=== PATIENT | female | born 1940 | race Caucasian/White ===

== ENCOUNTER → 2020-03-16 | Outpatient (REF) | payer MEDICARE, OTHER | LOC: M LAB REF 14:27 | PROVIDERS: ATTEND Dermatology | DX: C44.629 Squamous cell carcinoma of skin of left upper limb, including shoulder (principal) ==

== ENCOUNTER → 2020-03-20 | Outpatient (REF) | payer MEDICARE, OTHER | LOC: M LAB REF 12:59 | PROVIDERS: ATTEND Dermatology | DX: L90.5 Scar conditions and fibrosis of skin (principal) ==

== ENCOUNTER → 2020-04-03 | Outpatient (REF) | payer MEDICARE, OTHER | LOC: M LAB REF 18:02 | PROVIDERS: ATTEND Dermatology | DX: Z51.89 Encounter for other specified aftercare (principal) ==

== ENCOUNTER → 2020-08-14 | Outpatient (REF) | payer MEDICARE, OTHER | LOC: M LAB REF 19:09 | PROVIDERS: ATTEND Dermatology | DX: C44.219 Basal cell carcinoma of skin of left ear and external auricular canal (principal) | CPT/HCPCS: 11102; 17000; 17003; 17110; 88305; G0463 ==

== ENCOUNTER → 2021-03-15 | Outpatient (REF) | payer MEDICARE, OTHER | LOC: M LAB REF 17:21 | PROVIDERS: ATTEND Dermatology | DX: C44.629 Squamous cell carcinoma of skin of left upper limb, including shoulder (principal) | CPT/HCPCS: 11102; 88305; G0463 ==

== ENCOUNTER → 2021-05-01 | Outpatient (REF) | payer MEDICARE, OTHER ==
[~2021-05-01] MED LIST: ASMA220A2; ELIQ5TAB; FURO20TA2; GABA-1171; ISOS1TAB35; LEVO50TA5; METO1TAB7; POTA10CA32; ROSU5TAB5
== END ==
LOC: M LAB REF 12:19
PROVIDERS: ATTEND Dermatology
DX: L57.0 Actinic keratosis (principal); L57.8 Other skin changes due to chronic exposure to nonionizing radiation

== ENCOUNTER → 2021-05-14 | Outpatient (CLI) | payer MEDICARE, OTHER ==
--- NOTE | 2021-05-14 13:04 | RADONC.CN ---
Radiation Oncology Hx/Consult Radiation Oncology Consult Date of Service: May 14, 2021 Pt Identifier Bren Pham is a 80 year old female with a history of a left shoulder recurrent cutaneous SCC, [id number] stage III, deeply invasive. She underwent re- excision with Dr. Queen on 05/02/21 with negative margins and skin graft. She is seen today for adjuvant RT. Diagnosis/Treatment History Oncologic History History of BCC, [place], SCC 03/20/20 Excision of 5.0 x 4.0 cm left shoulder SCC Left shoulder, lesion, excision: Squamous cell carcinoma, invading dermis and focally the subcutaneous fat, as small nests and cords. The carcinoma is noted in the 12-1 area of the specimen on the inked dermal margin. All other skin(epidermal and dermal) and deep margins/subcutaneous fat appear free. 03/18/21 Shave biopsy for a recurrent left shoulder SCC 05/02/21 Re-excision of the lesion negative margins mesh graft Interval History No pain in shoulder, reports graft is healing well. Lives in [place]. No other lesions of concern today. Past Medical History: HTN UTIs CVA Past Surgical History: TAVR Social History: Never smoker Rarely drinks Review of Systems Constitutional: Reports: Normal appetite; Denies: Fatigue, Weight Loss Hematologic: Denies: Enlarged Lymph Nodes Musculoskeletal: Denies: Neck pain, Shoulder pain Psych: Reports: Mood Normal Vital Signs T 97.3 P 74 RR 18 BP 132/75 O2 94% Pain 0 Fatigue 0 General Exam: Alert, Cooperative, No Acute Distress Eye Exam: PERRLA, EOMI ENT EXAM: Atraumatic Neck Exam: Supple; Negative: Lymphadenopathy Abdomen Exam: Soft Extremity Exam: Negative: Edema Skin Exam: Lesion (There is a healing 8.0 x 4.5 cm ovoid graft on the left superior posterior shoulder. No axillary or cervical adenopathy. ) Neuro Exam: Normal Gait, Normal Speech, Cranial Nerves 3-12 NL Psych Exam: Mental status NL Diagnostic and Laboratory Diagnostic Review Radiologic images, relevant labs and pathology reports were personally reviewed and discussed with Ms. Pham. Assessment and Plan Impression Ms. Pham is a 80 year old female with a history of left shoulder recurrent cutaneous SCC, [id number] stage III, deeply invasive. She underwent re-excision with Dr. Queen on 05/02/21 with negative margins and skin graft. She is seen today for adjuvant RT. Stage Left shoulder cutaneous SCC [id number] stage III Performance Status ECOG 0 Plan We had an extensive discussion with Ms. Pham regarding the diagnosis at hand and available therapeutic options. She had a recurrent lesion on the shoulder which was re-excised to negative margins on 05/02/21. The recurrence is indication for adjuvant RT to reduce the risk of further recurrence. For this I recommend 55 Gy in 20 fractions with 6MeV electrons and bolus. This dose/fractionation scheme will maintain the integrity of the graft. We reviewed the side effects of treatment including skin reaction (redness, dry and or moist peeling, pain), fibrosis and late pigmentation changes. We discussed the logistics of receiving radiation therapy in detail including the need for a 1-time planning session. This can occur in 1-2 weeks to facilitate further healing of the graft. After discussing the risks, benefits and alternatives to radiation therapy, Ms. Pham was amenable to pursuing radiotherapy. All questions were answered to the patient's satisfaction. We instructed the patient that if there were any questions,concerns or changes in clinical status in the interim to contact us. Recommendations Adjuvant RT 55 Gy in 20 fractions with electrons/bolus Simulation in the next 1-2 weeks to facilitate healing of the graft Billing Statement Total time of [35] minutes was spent preparing for the visit [2], obtaining HPI [6], examining the patient [4], reviewing diagnostic tests [2], discussing management options [14], coordinating care [2], and writing this note [7]. EULALIA MAHER MD May 14, 2021 13:03
== END ==
LOC: M ONCR 11:01
PROVIDERS: ATTEND General Practice
DX: C44.629 Squamous cell carcinoma of skin of left upper limb, including shoulder (principal)

== ENCOUNTER → 2021-06-17 | Outpatient (CLI) | payer MEDICARE, OTHER | LOC: M PLARAD 11:02 | PROVIDERS: ATTEND Dermatology | DX: C44.92 Squamous cell carcinoma of skin, unspecified (principal); I65.23 Occlusion and stenosis of bilateral carotid arteries; J43.8 Other emphysema; I51.7 Cardiomegaly; I70.0 Atherosclerosis of aorta; I25.10 Atherosclerotic heart disease of native coronary artery without angina pectoris; Z95.2 Presence of prosthetic heart valve; K44.9 Diaphragmatic hernia without obstruction or gangrene; K80.20 Calculus of gallbladder without cholecystitis without obstruction; K57.90 Diverticulosis of intestine, part unspecified, without perforation or abscess without bleeding; R59.0 Localized enlarged lymph nodes | CPT/HCPCS: 78816; A9552 ==

== ENCOUNTER → 2021-06-24 | Outpatient (RCR) | payer MEDICARE, OTHER | LOC: M ONCR 05-28 10:47 | PROVIDERS: ATTEND General Practice | DX: C44.629 Squamous cell carcinoma of skin of left upper limb, including shoulder (principal) ==

== ENCOUNTER → 2021-07-02 | Outpatient (CLI) | payer MEDICARE, OTHER ==
[2021-07-02 11:16] LABS: BASO # 0.1 10^3/uL (0.0-0.2); BASO % 1.2 % (0.0-1.0); EOS # 0.2 10^3/uL (0.0-0.5); EOS % 2.8 % (0.0-3.0); HEMATOCRIT 41.3 % (36.0-47.0); HEMOGLOBIN 13.2 g/dl (12.0-15.5); LYMPH # 1.5 10^3/uL (1.5-5.0); LYMPH % 22.5 % (24.0-44.0); MEAN CORPUSCULAR VOLUME 96.9 fl (80.0-96.0); MONO # 0.7 10^3/uL (0.0-0.8); MONO % 10.8 % (2.0-8.0); NEUTROPHILS # 4.2 10^3/uL (1.5-8.5); NEUTROPHILS % 62.4 % (36.0-66.0); PLATELET COUNT, AUTOMATED 186 10^3/uL (150-450); RED BLOOD COUNT 4.26 10^6/uL (4.00-5.40); WHITE BLOOD COUNT 6.8 10^3/uL (4.0-10.0)
[2021-07-02 11:27] LABS: INR 1.34
[2021-07-02 11:42] LABS: ALBUMIN 3.6 GM/DL (3.2-5.2); BILIRUBIN,TOTAL 0.3 MG/DL (0.2-1.0); CALCIUM LEVEL 9.2 MG/DL (8.8-10.2); GLOMERULAR FILTRATION RATE 56.5 (>32); POTASSIUM SERUM 4.2 MEQ/L (3.5-5.1); TOTAL PROTEIN 7.7 GM/DL (6.4-8.2)
== END ==
LOC: M ONCR 10:55
PROVIDERS: ATTEND General Practice
DX: C44.629 Squamous cell carcinoma of skin of left upper limb, including shoulder (principal); Z79.01 Long term (current) use of anticoagulants

== ENCOUNTER → 2021-07-15 | Outpatient (CLI) | payer MEDICARE, OTHER ==
[~2021-07-15] MED LIST changes: +IRON1TAB2 PO; +LIDOCAINE 1% MDV 20ML VIAL As Ordered ONE
[2021-07-15 12:30] VITALS: BP 139/76
== END ==
LOC: M IRPRO 10:42
PROVIDERS: ATTEND General Practice
DX: D36.0 Benign neoplasm of lymph nodes (principal)

== ENCOUNTER → 2021-07-22 | Outpatient (RCR) | payer MEDICARE, OTHER ==
[~2021-07-22] MED LIST changes: -LIDOCAINE 1% MDV 20ML VIAL As Ordered ONE
== END ==
LOC: M ONCR 06-25 14:53
PROVIDERS: ATTEND General Practice
DX: C44.629 Squamous cell carcinoma of skin of left upper limb, including shoulder (principal)

== ENCOUNTER → 2021-08-02 | Outpatient (CLI) | payer MEDICARE, OTHER | LOC: M ONCR 11:00 | PROVIDERS: ATTEND General Practice | DX: C44.629 Squamous cell carcinoma of skin of left upper limb, including shoulder (principal); Z08 Encounter for follow-up examination after completed treatment for malignant neoplasm; Z92.3 Personal history of irradiation ==

== ENCOUNTER → 2021-11-29 | Outpatient (REF) | payer MEDICARE, OTHER | LOC: M SFHCDERM 16:05 | PROVIDERS: ATTEND Nurse Practitioner Family | DX: C44.619 Basal cell carcinoma of skin of left upper limb, including shoulder (principal) ==

== ENCOUNTER → 2022-01-21 | Outpatient (REF) | payer MEDICARE, OTHER ==
[~2022-01-21] MED LIST changes: -ASMA220A2; +MOME220A2
== END ==
LOC: M LAB REF 16:39
PROVIDERS: ATTEND Surgery
DX: Z85.828 Personal history of other malignant neoplasm of skin (principal); L90.5 Scar conditions and fibrosis of skin; L98.499 Non-pressure chronic ulcer of skin of other sites with unspecified severity

== ENCOUNTER → 2022-02-06 | Outpatient (REF) | payer MEDICARE, OTHER ==
[2022-02-06 18:24] LABS: PERCENT SATURATION 13.9 % (13.2-45.0)
== END ==
LOC: M LAB REF 16:43
PROVIDERS: ATTEND Internal Medicine Nephrology
DX: D50.9 Iron deficiency anemia, unspecified (principal)